=== PATIENT | male | born 1980 | race African-American/Black ===

== ENCOUNTER 2016-10-05 04:37 | Inpatient (IN) | payer OTHER ==
--- NOTE | ~2016-10-05 | PA ---
Unit #: [id number] #: [id number] Patient: TANG MCFARLANE [id number] [facility] [address] [place] [address] [id number] MR#: [id number] NAME: TANG MCFARLANE. ROOM: [facility] Age: 35 Sex: M Admission Date: 10/05/2016 : 1980 Date of Assessment: Attending Physician: Helio Riggins M.D. Admitting Physician: Helio Riggins M.D. Primary Care Physician: Tr[facility] PSYCHIATRIC ASSESSMENT INFORMANTS The patient reliability, fair informant and chart reliability, good. CHIEF COMPLAINT Depression and hallucination. HISTORY OF PRESENT ILLNESS Mr. Montoya is a 35-year-old male, seen on with the above-mentioned complaint. The patient presented with symptoms of depression. The patient has a history of previous treatment in 2006. History of multiple suicide attempts in the past. The patient carries a diagnosis of depressive disorder and bipolar mood disorder with psychotic feature. The patient presented from [facility]. Reported suicidal ideation, attempted suicide 5 days ago by cutting his arm. The patient needed medical attention, five sutures. Currently, suicidal with a plan to cut himself. The patient reported multiple suicide attempts in the past. Currently, homeless and unemployed. Noncompliant with medication. Feeling paranoid. The patient reported attending to internal stimuli. The patient is a poor historian. Limited medical information available. The patient also admitted using marijuana. Needing inpatient admission at this time for psychiatric stabilization. PAST PSYCHIATRIC HISTORY Remarkable for history of previous treatment as mentioned above. FAMILY HISTORY AND SOCIAL HISTORY The patient currently homeless, poor support system. Family psychiatric illness unknown at this time. No known history of any abuse. MEDICAL HISTORY Unremarkable for any chronic medical condition. Musculoskeletal; muscle strength and tone, no atrophy or abnormal movement. Gait normal. MEDICATION HISTORY The patient was on Seroquel and Zyprexa in the past. ALLERGIES No known drug allergies. SUBSTANCE ABUSE HISTORY The patient reported tobacco use, alcohol use, and marijuana abuse. The patient denied any blackout, HIV, hepatitis, or any withdrawal symptom or any IV drug use. Unit #: [id number] #: [id number] Patient: TANG MCFARLANE REVIEW OF SYSTEMS HEENT: Eyes, clear. Ears, nose, mouth, and throat; clear. CARDIOVASCULAR: Unremarkable. RESPIRATORY: Unremarkable. GI: Unremarkable. : Unremarkable. SKIN: Unremarkable. LYMPH NODE: Unremarkable. NEUROLOGIC: Unremarkable. ENDOCRINE: Unremarkable. HEMATOLOGIC: Unremarkable. ALLERGIC/IMMUNOLOGIC: Unremarkable. MUSCULOSKELETAL: Muscle strength and tone, no atrophy or abnormal movement. Gait normal. MENTAL STATUS EXAMINATION CONSTITUTIONAL: Measurement of vital signs; temperature 97.7, heart rate 94, respiratory rate 16, and blood pressure 116/70. Height 5 feet 2 inches and weight 182 pounds. GENERAL APPEARANCE: The patient dressed casually in hospital attire. No facial deformity noted. MUSCULOSKELETAL: Please see above. PSYCHIATRIC EXAMINATION Description of speech; regular rate, normal volume, normal articulation, and coherent. Description of thought process, goal directed. Description of association, intact. Description of abnormal psychotic thinking; the patient reported hallucination, delusions, suicidal ideation, depression, and substance abuse. Description of the patient's judgment: Concerning everyday activity, poor. Social situation, poor. Concerning psychiatric condition, poor. Complete mental status examination; oriented in time, place, and person. Recent and remote memory, fair. Attention span and concentration, fair. Language, able to name object and repeat phrases. Fund of knowledge, aware of current event and passive vocabulary intact. Mood and affect, sad and dysphoric. Insight and judgment, fair to poor. ASSETS AND LIABILITIES Assets, the patient is articulate and able to take care of his ADL. Liability; history of depression, psychosis, and substance abuse. ADMITTING DIAGNOSES Psychiatric: Bipolar mood disorder, not otherwise specified, current episode depressed with psychotic feature, F31.89 and cannabis abuse, moderate, F12.20. Secondary diagnosis: Deferred. Medical diagnosis: None. Stressors: Psychosocial stressors. PSYCHIATRIC PLAN AND TREATMENT GOAL AND DISCHARGE PLAN 1. Advised to admit the patient on the inpatient unit. Provide safe, supportive, and structured environment. 2. Ordered labs; CBC, CMP, UA, and UDS. Unit #: [id number] #: [id number] Patient: TANG MCFARLANE 3. Precaution for self-harm and psychosis precaution. 4. Advised to start with the inpatient programing. Advised the patient to start with haloperidol 5 mg b.i.d., Cogentin 1 mg b.i.d., Zyprexa 10 mg b.i.d., and Wellbutrin to continue 150 mg in the morning and noon. We will closely monitor. TREATMENT GOAL To attain euthymic mood, gain insight into his problem, and learn coping skills. DISCHARGE PLAN Plan to stabilize the patient and consider followup in outpatient program. ESTIMATED LENGTH OF STAY 5 days. Dictated by... Savannah Angeles/poly TD: 10/05/2016 16:28 JOB #: [id number] PSYCHIATRIC ASSESSMENT Page 1 of 1 X Helio Riggins MD X PSYCHIATRIC ASSESSMENT
--- NOTE | ~2016-10-05 | PN ---
Unit #: [id number] #: [id number] Patient: TANG MCFARLANE [id number] [facility] [address] [place] [address] [id number] I MR#: [id number] NAME: TANG MCFARLANE. ROOM: P210 Age: 35 Sex: M Admission Date: 10/05/2016 : 1980 Attending Physician: Helio Riggins M.D. Admitting Physician: Helio Riggins M.D. Primary Care Physician: [facility] PROGRESS NOTES DATE 10/06/2016 DISCUSSION Mr. Montoya is a 35-year-old male seen on 10/06/2016. The patient interviewed, chart reviewed. Obtained information from nursing staff. The patient was tolerating medication fairly well, compliant, cooperative, withdrawn, isolative, flat affect, guarded. The patient labs unremarkable. The patient reported making progress. Denied any suicidal ideation. Complete review of systems unremarkable. MENTAL STATUS EXAMINATION General appearance, the patient dressed casually. Attention span and concentration fair. Oriented to time, place and person. Mood and affect sad, dysphoric. Speech monotone. Thought process concrete. The patient denied any suicidal or homicidal ideation but isolative guarded. Recent and remote memory poor. Insight and judgement poor. DIAGNOSES Mood disorder NOS. ASSESSMENT/PLAN Advise to continue with current medication with a plan to consider discharge tomorrow if the patient continues to show improvement. Dictated by... Savannah Angeles/waleska TD: 10/07/2016 03:53 JOB #: [id number] Unit #: [id number] #: [id number] Patient: TANG MCFARLANE [facility] PROGRESS NOTES Page 1 of 1 X Helio Riggins MD X PROGRESS NOTE
--- NOTE | ~2016-10-05 | DS ---
Unit #: [id number] #: [id number] Patient: TANG MCFARLANE [id number] [place] [address] [id number] I MR#: [id number] NAME: TANG MCFARLANE. ROOM: [facility] Age: 35 Sex: M Admission Date: 10/05/2016 : 1980 Discharge Date: 10/08/2016 Attending Physician: Helio Riggins M.D. Primary Care Physician: [facility] DISCHARGE SUMMARY REASON FOR ADMISSION Depression. DIAGNOSTIC STUDIES LABORATORY DATA: Unremarkable. HOSPITAL COURSE The patient was admitted to inpatient unit on October 05 and discharged on 10/08/2016. The patient was treated on the inpatient unit with group therapy, individual therapy, and medication management. The patient responded well with the above modalities of treatment. Subsequently, the patient was discharged with a plan to follow up in outpatient program. DISCHARGE MEDICATIONS 1. Wellbutrin SR 150 mg twice daily, morning and noon for depression. 2. Zyprexa 20 mg at bedtime for psychosis. DISCHARGE DIAGNOSES PSYCHIATRIC: Bipolar mood disorder not otherwise specified, F31.89. Cannabis abuse, moderate, F12.20. SECONDARY: Deferred. MEDICAL: None. STRESSORS: Psychosocial stressor. FOLLOWUP CARE The patient to follow up in outpatient clinic as per director of social services. CONDITION ON DISCHARGE The patient pleasant, cooperative. Denied any psychotic symptom or any suicidal ideation. PROGNOSIS Guarded. DIET AND ACTIVITY As tolerated. Dictated by... Helio iRggins M.D. SZC/bzg Unit #: [id number] #: [id number] Patient: TANG MCFARLANE TD: 10/09/2016 06:59 JOB #: [id number] DISCHARGE SUMMARY Page 1 of 1 X Helio Riggins MD X DISCHARGE SUMMARY
--- NOTE | ~2016-10-05 | CO ---
Unit #: [id number] #: [id number] Patient: TANG MCFARLANE [id number] [facility] [address] [place] [address] [id number] MR#: [id number] NAME: TANG MCFARLANE ROOM: P210 Age: 35 Sex: M Admission Date: 10/05/2016 : 1980 Attending Physician: Helio Riggins M.D. Primary Care Physician: -[facility] Family Consultation Date: 10/05/2016 CONSULTATION REPORT SUBJECTIVE Tang is a 35-year-old who sustained lacerations to his right anterior forearm 2, 3, maybe greater than 4 weeks prior to this admission. Stitches are still in place. I have instructed and written orders for nursing staff to remove the stitches. At the time of removal, the wound was well healed and it was evident that the stitches were much overdue to be taken out. Dictated by... Ronit Perez P.A.-C. for Savannah Larios/poly TD: 10/07/2016 01:31 JOB #: [id number] CONSULTATION REPORT Page 1 of 1 X Ronit Perez CONSULTATION REPORT
--- NOTE | ~2016-10-05 | HP ---
Unit #: [id number] #: [id number] Patient: TANG MCFARLANE [id number] [place] [address] [id number] I MR#: [id number] NAME: TANG MCFARLANE ROOM: [facility] Age: 35 Sex: M Admission Date: 10/05/2016 : 1980 Attending Physician: Helio Riggins M.D. Admitting Physician: Helio Riggins M.D. [facility] HISTORY AND PHYSICAL HISTORY OF PRESENT ILLNESS Tang is a 35 year old admitted to [address] [place] [address] reporting auditory hallucinations. PAST MEDICAL HISTORY Nothing significant. PAST SURGICAL HISTORY Nothing reported. ALLERGIES No known drug allergies. SOCIAL HISTORY Smokes one pack per day. Drinks alcohol on occasion. Denies illicit drug use. FAMILY HISTORY Medically noncontributory. REVIEW OF SYSTEMS CONSTITUTIONAL: No fever or chills. HEENT: Denies any sore throat, ear pain or runny nose. CARDIOVASCULAR: Denies chest pain, irregular heart rhythm or palpitations. CHEST: Denies shortness of breath or cough. No hemoptysis. GASTROINTESTINAL: Denies nausea, vomiting, diarrhea or chronic constipation. ENDOCRINE: Denies history of increased thirst or urination. No recent significant weight loss or gain. GENITOURINARY: Denies dysuria, frequency, or hematuria. SKIN: Denies any rashes. HEMATOLOGIC: Denies history of increased bleeding or bruising. MUSCULOSKELETAL: Denies any hot, swollen joints. No generalized muscle pain. NEUROLOGIC: Denies problems with vision or speech. No frequent, severe headaches. No numbness, tingling or weakness in any extremities. Denies loss of bladder or bowel control. CURRENT MEDICATIONS 1. Haldol 5 mg b.i.d. 2. Cogentin 1 mg b.i.d. 3. Zyprexa 10 mg b.i.d. Unit #: [id number] #: [id number] Patient: TANG MCFARLANE 4. Zyban SR 150 mg b.i.d. 5. Nicotine patchy 14 mg q day 6. Milk of Magnesia p.r.n. 7. Maalox p.r.n. 8. Tylenol p.r.n. PHYSICAL EXAMINATION GENERAL: Alert, well-nourished, in no apparent distress. VITAL SIGNS: Blood pressure 116/70, heart rate 90, respirations 16, temperature 98.6. WEIGHT: 182 pounds. HEIGHT: 5'2". SKIN: Warm and dry without rash or lesion. HEENT: Normocephalic. TMs not viewed. Oral and nasal passages clear. Conjunctivae clear. Pupils equal, round and reactive to light and accommodation. Extraocular movements intact. NECK: Supple without lymphadenopathy or thyromegaly. HEART: Regular rate and rhythm without murmur. LUNGS: Clear. ABDOMEN: Soft, nontender. : Not done. EXTREMITIES: No evidence of cyanosis, clubbing or edema. Moves all extremities without focal deficit. NEUROLOGICAL: Grossly within normal limits. Cranial Nerves: II: Visual nieves are intact. III, IV AND : Extraocular movements are intact. Pupils are equal, round and reactive to light. V: Facial sensation is grossly normal. VII: Facial movements and expression are normal. VIII: Auditory acuity grossly intact. IX, X: Uvula is midline. Phonation is normal. XI: Patient shrugs shoulders and turns head normally. XII: Tongue protrudes in the midline. Sensory and Motor Function: Sensory and motor sensation is grossly normal. Motor: moves all extremities well. Coordination: Gait is normal. Deep Tendon Reflexes: Intact. IMPRESSION Psychiatric admission RECOMMENDATIONS PSYCHIATRIC: Per psychiatrist. MEDICAL: I see no contraindications to participating in facility's activities. MEDICAL PROGNOSIS Good. MEDICAL CONDITION Stable. Dictated by... Ronit Perez P.A.-C. for Laura Lazo M.D. Unit #: [id number] #: [id number] Patient: TANG MCFARLANE WILLIAMS/waleska TD: 10/06/2016 02:33 JOB #: [id number] HISTORY AND PHYSICAL Page 1 of 1 X Ronit Perez HISTORY AND PHYSICAL
--- NOTE | ~2016-10-05 | PN ---
Unit #: [id number] #: [id number] Patient: TANG MCFARLANE [id number] [facility] [address] [place] [address] [id number] I MR#: [id number] NAME: TANG MCFARLANE. ROOM: P210 Age: 35 Sex: M Admission Date: 10/05/2016 : 1980 Attending Physician: Helio Riggins M.D. Admitting Physician: Helio Riggins M.D. Primary Care Physician: [facility] PROGRESS NOTES DATE 10/07/2016 DISCUSSION Mr. Tang Mcfarlane is a 35-year-old male seen on 10/07/2016. The patient interviewed, chart reviewed. Obtained information from nursing staff. The patient was compliant and cooperative. Mood sad, dysphoric, flat affect, isolative, guarded, tolerating medication fairly well. No aggressive behavior. Complete review of systems unremarkable. MENTAL STATUS EXAMINATION General appearance, the patient dressed casually in hospital attire. Attention span and concentration fair. Oriented to time, place and person. Mood and affect sad, dysphoric. Speech monotone. Thought process concrete. The patient denied any thoughts of harming self or others but denied any psychotic symptoms but seclusive, isolative. Recent and remote memory poor. Insight and judgement poor. DIAGNOSES Major depressive disorder recurrent ASSESSMENT/PLAN Advise to continue with current medication with a plan to consider discharge tomorrow if the patient continues to do well. Dictated by... Savannah Angeles/waleska TD: 10/08/2016 01:40 JOB #: [id number] Unit #: [id number] #: [id number] Patient: TANG MCFARLANE [facility] PROGRESS NOTES Page 1 of 1 X Helio Riggins MD PROGRESS NOTE
== END 2016-10-08 14:52 | DRG 885 ==
LOC: P2S 04:37
DX: F31.89 Other bipolar disorder (principal); F39 Unspecified mood [affective] disorder; F29 Unspecified psychosis not due to a substance or known physiological condition; F12.20 Cannabis dependence, uncomplicated; F17.210 Nicotine dependence, cigarettes, uncomplicated
CPT/HCPCS: 86592